=== PATIENT | female | born 1995 | race Two or more races ===

== ENCOUNTER → 2022-01-02 | Outpatient (CLI) | payer MEDICAID ==
[2022-01-02 10:54] LABS: Basophils # (auto) 0 10 ^3/uL (0-0.2); Basophils % (auto) 0.3 % (0.0-2.0); Eosinophils # (auto) 0.1 10 ^3/uL (0-0.8); Hematocrit 38.1 % (36.0-46.0); Hemoglobin 12.1 g/dL (12.2-16.2); Lymphocytes # (auto) 2.2 10 ^3/uL (0.4-5.4); Lymphocytes % (auto) 33.4 % (10.0-50.0); Mean Corpuscular Hemoglobin 27.4 pg (28.0-32.0); Mean Corpuscular Hgb Conc. 31.9 g/dL (32.0-36.0); Mean Corpuscular Volume 86.1 fL (80.0-100.0); Monocytes # (auto) 0.4 10 ^3/uL (0-1.3); Monocytes % (auto) 5.8 % (0.0-12.0); Neutrophils # (auto) 3.8 10 ^3/uL (1.6-8.6); Neutrophils % (auto) 59.5 % (37.0-80.0); Red Blood Cells 4.43 10^6/uL (4.0-5.20); Red Cell Distribution Width 14.4 % (11.8-14.3); White Blood Cell 6.5 10^3/uL (4.4-10.8)
[2022-01-02 10:59] LABS: Urine Bacteria NONE SEEN /hpf (None Seen); Urine Blood Negative /uL (Negative); Urine Specific Gravity 1.012 (1.001-1.035); Urine WBC 1 /hpf (0 - 5)
[2022-01-02 13:28] LABS: Albumin 3.4 g/dL (3.4-5.0); Calcium 9.1 mg/dL (8.5-10.1); Potassium 4.6 mmol/L (3.5-5.1)
[2022-01-02 13:32] LABS: Bilirubin, Total 0.4 mg/dL (0.2-1.0); Total Protein 7.5 g/dL (6.4-8.2)
[2022-01-02 13:39] LABS: BUN/Creatinine Ratio 17.5
== END | disposition home or self-care (01) ==
LOC: LAB 10:37
PROVIDERS: ATTEND Internal Medicine
DX: Z00.00 Encounter for general adult medical examination without abnormal findings (principal); E66.9 Obesity, unspecified; D64.9 Anemia, unspecified
CPT/HCPCS: 36415; 80053; 80061; 81001; 83036; 84443; 85025

== ENCOUNTER → 2022-05-27 | Day surgery (SDC) | payer MEDICAID ==
[2022-05-26 10:25] LABS: Basophils # (auto) 0 10 ^3/uL (0-0.2); Basophils % (auto) 0.3 % (0.0-2.0); Eosinophils # (auto) 0 10 ^3/uL (0-0.8); Eosinophils % (auto) 0.7 % (0.0-7.0); Hematocrit 39.9 % (36.0-46.0); Lymphocytes # (auto) 1.8 10 ^3/uL (0.4-5.4); Lymphocytes % (auto) 30.5 % (10.0-50.0); Mean Corpuscular Hemoglobin 27.9 pg (28.0-32.0); Mean Corpuscular Hgb Conc. 32.6 g/dL (32.0-36.0); Mean Corpuscular Volume 85.6 fL (80.0-100.0); Monocytes # (auto) 0.3 10 ^3/uL (0-1.3); Monocytes % (auto) 5.1 % (0.0-12.0); Neutrophils # (auto) 3.7 10 ^3/uL (1.6-8.6); Neutrophils % (auto) 63.4 % (37.0-80.0); Nucleated Red Blood Cells % 0.1 %; Red Blood Cells 4.67 10^6/uL (4.0-5.20); Red Cell Distribution Width 14.9 % (11.8-14.3); White Blood Cell 5.8 10^3/uL (4.4-10.8)
[2022-05-26 10:41] LABS: Partial Thromboplastin Time 33.6 sec (24.6-33.4)
[2022-05-26 10:56] LABS: Urine Bacteria NONE SEEN /hpf (None Seen); Urine Blood 1+ /uL (Negative); Urine Specific Gravity 1.023 (1.001-1.035); Urine WBC <1 /hpf (0 - 5)
[2022-05-26 11:18] LABS: BUN/Creatinine Ratio 19.7; Bilirubin, Total 0.4 mg/dL (0.2-1.0); Calcium 8.8 mg/dL (8.5-10.1); Potassium 4.4 mmol/L (3.5-5.1)
[~2022-05-27] VITALS: Ht 160 cm; Wt 108.9 kg
[~2022-05-27] MED LIST: BUPIVACAINE 0.25% INJ 50ML VIAL ONE; GLYCOPYRROLATE 0.2 MG/ML 1ML VIAL ONE; HYDR-4902 PO; HYDROmorphone HCL 2 MG/ML VL/or syr IV PRN; IBUP800T27 PO; LACTATED RINGER'S 1,000 ML IV SCH; LIDOCAINE W/ EPINEPHRINE 1% 20ML VIAL ONE; LIDOCAINE W/ EPINEPHRINE 2% INJ 20ML VIAL ONE; METOCLOPRAMIDE HCL 5MG/ml INJ 2ml VIAL IV ONE; MIDAZOLAM HCL 2MG/2ML 2ml VIAL (1mg/ml) ONE; NEOSTIGMINE 1 MG/ML INJ (10mg/10ML VIAL) ONE; ONDA-144 PO; ONDANSETRON HCL 4 MG/2 ML VIAL IV PRN; ONDANSETRON HCL 4 MG/2 ML VIAL ONE; PROPOFOL 10 MG/ML 20 ML IV ONE; ROCURONIUM 10MG/ML 10ML VIAL IV ONE; ceFAZolin 1GM/50ML 100 ML IV ONE; fentaNYL CITRATE 100 MCG/2 ML VL ONE
[2022-05-27 08:06] LABS: RPR Non Reactive (Non Reactive)
[2022-05-27 10:00] VITALS: BP 108/66
== END | disposition home or self-care (01) ==
LOC: SUR 06:21
PROVIDERS: ATTEND Obstetrics & Gynecology
DX: Z30.2 Encounter for sterilization (principal); D64.9 Anemia, unspecified; E66.01 Morbid (severe) obesity due to excess calories; Z68.41 Body mass index [BMI] 40.0-44.9, adult; Z79.891 Long term (current) use of opiate analgesic; Z79.1 Long term (current) use of non-steroidal anti-inflammatories (NSAID); Z20.822 Contact with and (suspected) exposure to COVID-19; Z64.1 Problems related to multiparity
CPT/HCPCS: 36415; 58671; 80053; 81001; 81025; 84702; 85025; 85610; 85730; 86592; 86850; 86900; 86901; J0690; J1170; J2250; J2405; J2704; J3010; J3490; U0003

== ENCOUNTER 2022-09-03 09:17 | Emergency (ER) | payer MEDICAID ==
[~2022-09-03] VITALS: Ht 160 cm; Wt 108.0 kg
[~2022-09-03 09:17] MED LIST changes: -BUPIVACAINE 0.25% INJ 50ML VIAL ONE; -GLYCOPYRROLATE 0.2 MG/ML 1ML VIAL ONE; -HYDROmorphone HCL 2 MG/ML VL/or syr IV PRN; -LACTATED RINGER'S 1,000 ML IV SCH; -LIDOCAINE W/ EPINEPHRINE 1% 20ML VIAL ONE; -LIDOCAINE W/ EPINEPHRINE 2% INJ 20ML VIAL ONE; -METOCLOPRAMIDE HCL 5MG/ml INJ 2ml VIAL IV ONE; -MIDAZOLAM HCL 2MG/2ML 2ml VIAL (1mg/ml) ONE; -NEOSTIGMINE 1 MG/ML INJ (10mg/10ML VIAL) ONE; -ONDANSETRON HCL 4 MG/2 ML VIAL IV PRN; -ONDANSETRON HCL 4 MG/2 ML VIAL ONE; -PROPOFOL 10 MG/ML 20 ML IV ONE; -ROCURONIUM 10MG/ML 10ML VIAL IV ONE; -ceFAZolin 1GM/50ML 100 ML IV ONE; -fentaNYL CITRATE 100 MCG/2 ML VL ONE
[2022-09-03 09:58] VITALS: BP 144/92
[2022-09-03] MEDS ORDERED: ALBUTEROL SULF 2.5 MG/0.5ML(0.5%) NEB SOLN NEB ONE (10:15)
[2022-09-03] MEDS ORDERED: methylPREDNISolone SOD SUCC 125 MG/2 ML VL IM ONE (10:15)
[2022-09-03] MEDS ORDERED: IPRATROPIUM BROM 0.5 MG/2.5ML INH SOL NEB ONE (10:15)
[2022-09-03] MEDS ORDERED: PRED20TA2 PO (10:46)
[2022-09-03] MEDS ORDERED: ALBU108A5 IN (10:46)
== END 2022-09-03 11:04 | disposition home or self-care (01) ==
LOC: ER 09:17
DX: J45.901 Unspecified asthma with (acute) exacerbation (principal)
CPT/HCPCS: 71045; 94640; 96372; 99283; J2930; J7644

== ENCOUNTER → 2023-02-03 | Outpatient (CLI) | payer MEDICAID ==
[~2023-02-03] MED LIST changes: +ALBU108A5 IN; +IBUP-1456 PO; -IBUP800T27 PO; +PRED20TA2 PO
[2023-02-03 10:35] LABS: Basophils # (auto) 0 10 ^3/uL (0-0.2); Basophils % (auto) 0.3 % (0.0-2.0); Eosinophils # (auto) 0 10 ^3/uL (0-0.8); Eosinophils % (auto) 0.6 % (0.0-7.0); Hematocrit 40.7 % (36.0-46.0); Hemoglobin 13.3 g/dL (12.2-16.2); Lymphocytes # (auto) 1.9 10 ^3/uL (0.4-5.4); Lymphocytes % (auto) 30.1 % (10.0-50.0); Mean Corpuscular Hemoglobin 28.2 pg (28.0-32.0); Mean Corpuscular Hgb Conc. 32.8 g/dL (32.0-36.0); Mean Corpuscular Volume 86.1 fL (80.0-100.0); Monocytes # (auto) 0.3 10 ^3/uL (0-1.3); Monocytes % (auto) 4.4 % (0.0-12.0); Neutrophils # (auto) 4.1 10 ^3/uL (1.6-8.6); Neutrophils % (auto) 64.6 % (37.0-80.0); Nucleated Red Blood Cells % 0.1 %; Red Blood Cells 4.72 10^6/uL (4.0-5.20); Red Cell Distribution Width 14.7 % (11.8-14.3); White Blood Cell 6.4 10^3/uL (4.4-10.8)
[2023-02-03 11:17] LABS: Alanine Aminotransferase 13 U/L (7-40); Albumin 4.6 g/dL (3.2-4.8); Alkaline Phosphatase 87 U/L (46-116); Anion Gap 7 (5-15); Aspartate Aminotransferase 17 U/L (13-40); BUN/Creatinine Ratio 9.5 (10.0-20.0); Blood Urea Nitrogen 6 mg/dL (9-23); Calcium 9.3 mg/dL (8.5-10.1); Carbon Dioxide 29 mmol/L (20-30); Chloride 102 mmol/L (98-107); Glucose 99 mg/dL (74-106); Sodium 138 mmol/L (136-145); Thyroid Stimulating Hormone 1.87 uIU/mL (0.55-4.78)
[2023-02-03 11:18] LABS: Bilirubin, Total 0.7 mg/dL (0.2-1.0); Total Protein 7.7 g/dL (5.7-8.2)
[2023-02-03 11:41] LABS: Follicle Stimulating Hormone 7.73 IU/L (SEE BELOW); Leuteinizing Hormone 12.1 IU/L
[2023-02-03 11:42] LABS: Prolactin 6.99 ng/mL (2.8-29.2)
[2023-02-03 11:43] LABS: Free T4 (Free Thyroxine) 1.06 ng/dL (0.89-1.76)
[2023-02-04 06:06] LABS: Insulin 21.4 uIU/mL (2.6-24.9)
== END | disposition home or self-care (01) ==
LOC: LAB 10:13
PROVIDERS: ATTEND Obstetrics & Gynecology
DX: E28.2 Polycystic ovarian syndrome (principal)
CPT/HCPCS: 36415; 80053; 82626; 82670; 83001; 83002; 83036; 83525; 84144; 84146; 84403; 84439; 84443; 84702; 85025

== ENCOUNTER → 2024-02-08 | Outpatient (CLI) | payer MEDICAID ==
[2024-02-08 10:20] LABS: Basophils # (auto) 0 10 ^3/uL (0-0.2); Basophils % (auto) 0.3 % (0.0-2.0); Eosinophils # (auto) 0.1 10 ^3/uL (0-0.8); Hematocrit 36.7 % (36.0-46.0); Hemoglobin 12.5 g/dL (12.2-16.2); Lymphocytes # (auto) 1.8 10 ^3/uL (0.4-5.4); Mean Corpuscular Hgb Conc. 34.1 g/dL (32.0-36.0); Monocytes # (auto) 0.4 10 ^3/uL (0-1.3); Monocytes % (auto) 5.4 % (0.0-12.0); Neutrophils # (auto) 4.6 10 ^3/uL (1.6-8.6); Neutrophils % (auto) 67.3 % (37.0-80.0); Nucleated Red Blood Cells % 0.1 %; Platelet Count (auto) 309 10^3/uL (140-450); Red Blood Cells 4.17 10^6/uL (4.0-5.20); Red Cell Distribution Width 14.7 % (11.8-14.3); White Blood Cell 6.9 10^3/uL (4.4-10.8)
[2024-02-08 10:48] LABS: Alanine Aminotransferase 12 U/L (7-40); Albumin 4.2 g/dL (3.2-4.8); Alkaline Phosphatase 55 U/L (46-116); Anion Gap 8 (5-15); Aspartate Aminotransferase 14 U/L (13-40); BUN/Creatinine Ratio 10.8 (10.0-20.0); Bilirubin, Total 0.6 mg/dL (0.2-1.0); Blood Urea Nitrogen 7 mg/dL (9-23); Calcium 9.6 mg/dL (8.7-10.4); Carbon Dioxide 28 mmol/L (20-31); Chloride 104 mmol/L (98-107); Cholesterol 130 mg/dL (< 200); Glucose 80 mg/dL (74-106); HDL Cholesterol 41 mg/dL (40-59); LDL Cholesterol 79 mg/dL (< 100); Potassium 3.6 mmol/L (3.5-5.1); Sodium 140 mmol/L (136-145); Total Protein 6.9 g/dL (5.7-8.2); Triglycerides 77 mg/dL (< 150)
== END | disposition home or self-care (01) ==
LOC: LAB 09:48
PROVIDERS: ATTEND Nurse Practitioner Family
DX: R79.89 Other specified abnormal findings of blood chemistry (principal); D64.9 Anemia, unspecified; I10 Essential (primary) hypertension; E66.01 Morbid (severe) obesity due to excess calories
CPT/HCPCS: 36415; 80053; 80061; 82306; 84443; 85025

== ENCOUNTER 2024-05-11 14:18 | Emergency (ER) | payer MEDICAID ==
[~2024-05-11] VITALS: Ht 160 cm; Wt 79.6 kg
--- NOTE | 2024-05-11 15:42 | ED.PDOC ---
HPI Allergic reaction HPI Comments A 28 YEAR OLD FEMALE PRESENTS TO THE ED WITH CHIEF COMPLAINT OF RASH. PATIENT REPORTS THAT SHE HAS BEEN EXPERIENCING A RASH TO HER BODY SINCE THIS MORNING WITH ASSOCIATED ITCHINESS. PATIENT RELAYS THAT SHE HAS NO PREVIOUS HISTORY OF ALLERGIES AND HAS NEVER HAD A RASH LIKE TODAY. PATIENT DENIES ANY SOB, THROAT SWELLING, MOUTH SWELLING, FEVER, CHILLS, CHEST PAIN, OR DIZZINESS. NO OTHER SYMPTOMS REPORTED AT THIS TIME OF CARE. Chief Complaint: Rash Time Seen by MD: 15:36 Primary Care Provider: ANNIE Garcia Notes: Nurses Notes, Medications, Allergies Allergies: Coded Allergies: NO KNOWN ALLERGIES (Unverified , 05/26/22) Home Meds Active Scripts Hydroxyzine Pamoate (Vistaril) 25 Mg Cap, 1 CAP PO TID, #30 CAP 1 Refill Prov:AURELIANO POLO 05/11/24 Prednisone (Prednisone) 20 Mg Tab, 60 MG PO DAILY, #24 TAB Prov:AURELIANO POLO 05/11/24 Prednisone (Prednisone) 20 Mg Tab, 60 MG PO DAILY, #15 MG Prov:AURELIANO POLO 09/03/22 Albuterol Sulfate (Albuterol Sulfate Hfa) 108 Mcg/Act Aer, 108 MCG IN TID, #90 AER Prov:AURELIANO POLO 09/03/22 Ondansetron (Zofran) 4 Mg Tab, 4 MG PO Q4HPRN PRN, #30 TAB Prov:MARIA DEL CARMEN RENAE DO 05/27/22 Ibuprofen (Ibuprofen) 800 Mg Tab, 800 MG PO TID PRN for 15 Days, #40 TAB Prov:MARIA DEL CARMEN RENAE DO 05/27/22 Hydrocodone-Acetaminophen (Hydrocodone Bitartrate/AC 5-325 mg) 1 Tab Tab, 1 TAB PO Q6HP PRN for 4 Days, #16 TAB Prov:MARIA DEL CARMEN RENAE DO 05/27/22 Information Source: Patient Mode of Arrival: Ambulatory Severity: Mild, Moderate Rash: Mild, Moderate SOB: None Difficulty swallowing: None Pruritus: Mild Timing: Hours Duration: Since onset, Hours Prehospital treatment: None Location: Generalized Exposed to: Unknown Developed: Pruritus, Rash History of: None Modyifying Factors: None Associated Sign and Symptoms: None Past Medical History PAST MEDICAL HISTORY: Asthma Surgical History: Denies all surgeries BI DEVELOPER History: Denies all BI DEVELOPER Hx Family History Family History: Reviewed,noncontributory to illness Social History Smoker: Non-Smoker Alcohol: Denies ETOH Use Drugs: Denies Drug Use Lives In: Home Constitutional: denies: chills, diaphoresis, fatigue, fever, malaise, sweats, weakness, others EENTM: denies: blurred vision, double vision, ear bleeding, ear discharge, ear drainage, ear pain, ear ringing, eye pain, eye redness, hearing loss, mouth pain, mouth swelling, nasal discharge, nose bleeding, nose congestion, nose pain, photophobia, tearing, throat pain, throat swelling, voice changes, others Respiratory: denies: cough, hemoptysis, orthopnea, SOB at rest, shortness of breath, SOB with excertion, stridor, wheezing, others Cardiovascular: denies: chest pain, dizzy spells, diaphoresis, Dyspnea on exertion, edema, irregular heart beat, left arm pain, lightheadedness, palpita tions, PND, syncope, others Gastrointestinal: denies: abdomen distended, abdominal pain, blood streaked sergey wels, constipated, diarrhea, dysphagia, difficulty swallowing, hematemesis, melena, nausea, poor appetite, poor fluid intake, rectal bleeding, rectal pain, vomiting, others Genitourinary: denies: abnormal vagina bleeding, burning, dyspareunia, dysuria, flank pain, frequency, hematuria, incontinence, pain, , vagina discharge, urgency, others Neurological: denies: dizziness, fainting, headache, left sided numbness, left sided weakness, numbness, paresthesia, pre-existing deficit, right sided numbness, right sided weakness, seizure, speech problems, tingling, tremors, weakness, others Musculoskeletal: denies: back pain, gout, joint pain, joint swelling, muscle pain, muscle stiffness, neck pain, others Integumetry: reports: rash; denies: bruises, change in color, change in hair/nails, dryness, laceration, lesions, lumps, wounds, others Allergic/Immunocompromised: denies: Difficulty Healing, Frequent Infections, Hives, Itching, others Hematologic/Lymphatic: denies: anemia, blood clots, easy bleeding, easy bruising, swollen glands, others Endocrine: denies: excessive hunger, excessive sweating, excessive thirst, excessive urination, flushing, intolerance to cold, intolerance to heat, unexplained weight gain, unexplained weight loss, others Psychiatric: denies: anxiety, bipolar disorder, depression, hopeless, panic d isorder, schizophrenia, sleepless, suicidal, others All Other Systems: Reviewed and Negative Physical Exam General Appearance: No Apparent Distress, Normal HEENT: Normal ENT Inspection, PERRL/EOMI, Pharynx Normal, TMs Normal Neck: Full Range of Motion, Non-Tender, Normal, Normal Inspection Respiratory: Chest Non-Tender, Lungs Clear, No Accessory Muscle Use, No Respiratory Distress, Normal Breath Sounds Cardiovascular: No Edema, No JVD, No Murmur, No Gallop, Normal Peripheral Pulses, Regular Rate/Rhythm Breast Exam: Deferred Gastrointestinal: No Organomegaly, Non Tender, No Pulsatile Mass, Normal Bowel Sounds, Soft Genitalia: Deferred Pelvic: Deferred Rectal: Deferred Extremities: No calf tenderness, Normal capillary refill, Normal inspection, Normal range of motion, Non-tender, No pedal edema Musculoskeletal : Apperance: Normal Neurologic: Alert, luncheonette manager II-XII nml as Tested, No Motor Deficits, Normal Affect, Normal Mood, No Sensory Deficits Cerebellar Function: Normal Reflexes: Normal Skin: Dry, Rash (ERYTHEMA SKIN RASH WITH HIVES ON UPPER AND LOWER BODY REGION, NO OPEN WOUND AND DRAINAGE. ), Warm Peripheral Pulses: 2+ carotid (R), 2+ carotid (L) Lymphatic: No Adenopathy Was a procedure done? Was a procedure done?: No Differential diagnosis (all) Differential Diagnosis: Urticaria, Other (ALLERGIC REACTION ) X-Ray, Labs, Meds, VS Vital Signs Date Time Temp Pulse Resp B/P (MAP) Pulse Ox O2 Delivery O2 Flow Rate FiO2 05/11/24 15:14 98.4 108 16 117/79 (92) 95 Current Medications Medications (Trade) Dose Ordered Sig/Turner Route Start Time Stop Time Status Last Admin Epinephrine HCl 0.3 mg ONCE ONCE SC 05/11/24 15:45 05/11/24 15:46 DC 05/11/24 15:43 X-Ray, Labs, Meds, VS Comment EXTERNAL MEDICAL RECORDS REVIEWED: [NONE] INDEPENDENT HISTORIANS: [NONE] SOCIAL DETERMINANTS OF HEALTH: [NONE] LABS ORDERED: NONE REVIEWED AND INTERPRETED RESULTS: NONE IMAGING ORDERED: NONE TREATMENTS ORDERED: EPINEPHRINE 0.5MG SUBQ PROCEDURES PERFORMED: NONE CRITICAL CARE TIME: NONE BASED ON HISTORY OF PRESENT ILLNESS, AND PHYSICAL EXAM, PATIENT WILL BE DISCH ARGED HOME. DISCUSSED PLAN FOR DISCHARGE HOME WITH RX. MEDICATION WARNINGS GIVEN. SHARED DECISION MAKING: DISCUSSED WITH PATIENT THAT THEIR WORKUP WAS NORMAL. PATIENT INSTRUCTED TO FOLLOW UP WITH PRIMARY CARE PROVIDER IN 1-2 DAYS FOR RE- EVALUATION OF SYMPTOMS. PATIENT VERBALIZES UNDERSTANDING TO RETURN TO ED FOR NEW OR WORSENING SYMPTOMS OR IF FOLLOW UP WITH PCP CANNOT BE OBTAINED. PATIENT FEELS COMFORTABLE GOING HOME AT THIS TIME. ALL QUESTIONS ADDRESSED AT TIME OF DISCHARGE. Time of 1ST Reevaluation: 16:20 Reevaluation 1ST: Improved Patient Education/Counseling: Diagnosis, Treatment, Need For Follow Up Family Education/Counseling: Diagnosis, Treatment, Need For Follow Up, No Family Present Medical Screening: No EMC Exist At This Time Departure 1 Departure Time of Disposition: 16:20 Impression: Primary Impression: Allergic reaction Qualified Codes: T78.40XA - Allergy, unspecified, initial encounter Disposition: HOME / SELF CARE / HOMELESS Condition: Stable Additional Instructions: FOLLOW-UP WITH PCP IN 1 TO 2 DAYS. TAKE MEDICATIONS PRESCRIBED. RETURN TO ED FOR ANY NEW OR WORSENING SYMPTOMS. e-Prescriptions Hydroxyzine Pamoate (Vistaril) 25 Mg Cap 1 CAP PO TID, #30 CAP 1 Refill Prov: AURELIANO POLO 05/11/24 Prednisone (Prednisone) 20 Mg Tab 60 MG PO DAILY, #24 TAB Prov: AURELIANO POLO 05/11/24 Discharged With: Self, Relative Critical Care Note Critical Care Time?: No Stability Stability form required: No Heart Score Heart Score: Heart Score Response (Comments) Value History N/A 0 EKG N/A 0 Age N/A 0 Risk Factors N/A 0 Troponin N/A 0 Total 0 I personally scribed for AURELIANO POLO ([email or web address]) on 05/11/24 at 15:42. Electronically submitted by Yandel Gilmore ([email or web address]). AURELIANO POLO May 11, 2024 15:42
[2024-05-11] MEDS: EPINEPHrine HCL 1 MG/1 ML AMP SC ONE (15:43)
[2024-05-11 15:58] VITALS: BP 118/80; PULSE 102; RESP 16; TEMP 98.1; O2SAT 96
[2024-05-11] MEDS ORDERED: HYDR25CA PO (15:58)
== END 2024-05-11 16:19 | disposition home or self-care (01) ==
LOC: ER 14:18
DX: T78.40XA Allergy, unspecified, initial encounter (principal); J45.909 Unspecified asthma, uncomplicated; Z79.52 Long term (current) use of systemic steroids; Z79.899 Other long term (current) drug therapy; X58.XXXA Exposure to other specified factors, initial encounter
CPT/HCPCS: 96372; 99283; J0171

== ENCOUNTER 2025-03-27 10:36 | Outpatient (CLI) | payer MEDICAID ==
[~2025-03-27 10:36] MED LIST changes: +HYDR25CA PO
[2025-03-27 11:13] LABS: Hematocrit 38.9 % (36.0-46.0); Hemoglobin 13.3 g/dL (12.2-16.2); Mean Corpuscular Hemoglobin 30.7 pg (28.0-32.0); Mean Corpuscular Volume 90.0 fL (80.0-100.0); Nucleated Red Blood Cells % 0.0 %
[2025-03-27 11:20] LABS: Alanine Aminotransferase 16 U/L (7-40); Albumin 4.3 g/dL (3.2-4.8); Alkaline Phosphatase 59 U/L (46-116); Anion Gap 5 (5-15); BUN/Creatinine Ratio 14.1 (10.0-20.0); Blood Urea Nitrogen 10 mg/dL (9-23); Calcium 9.4 mg/dL (8.7-10.4); Carbon Dioxide 31 mmol/L (20-31); Chloride 107 mmol/L (98-107); Cholesterol 148 mg/dL (< 200); Glucose 82 mg/dL (74-106); Potassium 4.9 mmol/L (3.5-5.1); Sodium 143 mmol/L (136-145); Total Protein 7.1 g/dL (5.7-8.2); Triglycerides 52 mg/dL (< 150)
[2025-03-27 11:21] LABS: Bilirubin, Total 0.5 mg/dL (0.2-1.0); HDL Cholesterol 63 mg/dL (40-59)
[2025-03-27 11:22] LABS: Urine Amorphous Crystal FEW /hpf (None Seen); Urine Budding Yeast FEW /hpf (None Seen); Urine Protein, UAD Negative (Negative)
== END 2025-03-27 17:00 | disposition home or self-care (01) ==
LOC: LAB 10:36
PROVIDERS: ATTEND Nurse Practitioner Family
DX: I10 Essential (primary) hypertension (principal); E66.9 Obesity, unspecified; Z00.01 Encounter for general adult medical examination with abnormal findings
CPT/HCPCS: 36415; 80053; 80061; 81001; 82306; 84443; 85025

== ENCOUNTER → 2025-04-05 | Outpatient (CLI) | payer MEDICAID ==
--- NOTE | 2025-04-06 14:37 | DVHSR ---
APPROVED REPORT EXAM: Two-dimensional and M-mode echocardiogram with Doppler and color Doppler. INDICATION Syncope RISK FACTORS Weight: 183 DIMENSIONS LVDd 4.4 (3.8-5.7cm) LA (2D) 2.8 (1.9-4.0cm) Aortic Root 2.7 (2.0-3.7cm) LVDs 2.9 (2.5-4.0cm) LA (MM) (1.9-4.0cm) Aortic Cusp Exc 1.8 (1.5-2.0cm) EF (%) 63.0 (55-70%) Rt. Atrium 3.4 (1.9-4.0cm) Asc. Aorta cm IVSd 0.8 (0.7-1.1cm) RV (D) (1.8-2.4cm) PWd 0.9 (0.7-1.1cm) Mitral Valve Mitral Mitral Stenosis E wave 1.11m/s MV Mean GR. mmHg A wave 0.67m/s MV Peak GR. mmHg E/A ratio 1.7 2D MVA cm2 DECEL Time 161ms PRESS 1/2 Time ms Aortic Valve Aortic Valve Aortic Stenosis V1 0.82m/s AO Mean GR. 3mmHg V2 1.08m/s AO Peak GR. 5mmHg LVOT Diameter 2.0 (1.8-2.4cm) Doppler MAXIMUS 2.38cm2 Pulmonic Valve V2 0.76m/s Tricuspid Valve TR Velocity 2.26m/s RVSP 23mmHg Conclusion Technically good study. Sinus rhythm. Normal chamber sizes Valves are normal. EF of 65% with normal RV function. Normal Doppler. No pericardial effusion masses or vegetations.
== END | disposition home or self-care (01) ==
LOC: XYW 07:38
PROVIDERS: ATTEND Internal Medicine
DX: R00.0 Tachycardia, unspecified (principal); R55 Syncope and collapse
CPT/HCPCS: 93306